=== PATIENT | male | born 1995 | race Asian ===

== ENCOUNTER → 2016-06-08 | Outpatient (CLI) | payer OTHER ==
[~2016-06-08] MED LIST: ATV5 PO; RSP2 PO; RSP3 PO
[2016-06-08 13:44] LABS: DAYS OF ABSTINENCE 2; METHOD OF COLLECTION MASTURBATION; SEMEN COLOR GRAY OR GRAY-WHITE (GRY/GRYWHTE); SEMEN TIME OF COLLECTION 1100; SEMEN VOLUME 0.5 ML (>1.5); TYPE OF SPECIMEN CONTAINER STERILE CUP
[2016-06-08 13:45] LABS: SPERM VIABILITY STAIN NOT INDICATED % (>58%)
== END | disposition home or self-care (01) ==
LOC: C.LAB 11:14
PROVIDERS: ATTEND Family Medicine
DX: R86.9 Unspecified abnormal finding in specimens from male genital organs (principal)